=== PATIENT | female | born 1965 | race Caucasian/White ===

== ENCOUNTER → 2017-07-23 10:06 | Outpatient (CLI) | payer BC, SELFPAY ==
[2017-07-23 10:31] LABS: Absolute Lymphocyte Count 1.87 X10^3/ul (0.83-4.51); Basophil# 0.02 X10^3/uL; Basophil% 0.3 % (0-1); Eosinophils% 1.6 % (0-5); Hematocrit 40.5 % (37-47); Hemoglobin 12.6 g/dl (12.0-15.0); Lymphocyte # 1.87 X10^3/ul (4.0); Lymphocyte % 29.1 % (19-41); Mean Corp Hgb Conc 31.1 g/gl (32-36); Mean Corpuscular Hgb 26.6 pg (27.0-32.0); Mean Corpuscular Volume 85.4 fL (81-99); Mean Platelet Vol. 10.9 fl (6.2-12.0); Monocyte% 6.2 % (0-10); Neutrophil # 4.03 X10^3/uL (2.7-7.7); Neutrophil % 62.6 % (47-70); Platelet Count 246 K/mm3 (150-450); Red Blood Count 4.74 M/mm3 (4.2-5.4); White Blood Count 6.4 K/mm3 (4.4-11.0)
[2017-07-23 10:33] LABS: POSITIVE COUNT NO; POSITIVE DIFFERENTIAL NO; POSITIVE MORPHOLOGY NO
== END ==
PROVIDERS: Visit Provider Obstetrics & Gynecology
DX: N93.9 Abnormal uterine and vaginal bleeding, unspecified (principal)
CPT/HCPCS: 36415; 85025

== ENCOUNTER 2017-10-07 08:37 | Day surgery (SDC) | payer BC, SELFPAY ==
[2017-10-01 10:56] LABS: Absolute Lymphocyte Count 1.61 X10^3/ul (0.83-4.51); Absolute Neutrophil Count 3.8 X10^3/uL (2.0-7.7); Basophil# 0.01 X10^3/uL; Basophil% 0.2 % (0-1); Eosinophil# 0.12 X10^3/uL; Hematocrit 38.6 % (37-47); Hemoglobin 11.9 g/dl (12.0-15.0); Lymphocyte # 1.61 X10^3/ul (4.0); Lymphocyte % 27.1 % (19-41); Mean Corp Hgb Conc 30.8 g/gl (32-36); Mean Corpuscular Hgb 25.9 pg (27.0-32.0); Mean Corpuscular Volume 84.1 fL (81-99); Mean Platelet Vol. 10.7 fl (6.2-12.0); Monocyte# 0.39 X10^3/uL; Monocyte% 6.6 % (0-10); Neutrophil # 3.81 X10^3/uL (2.7-7.7); Neutrophil % 63.9 % (47-70); Platelet Count 256 K/mm3 (150-450); RBC Distribution Width CV 16.1 % (11.6-14.6); Red Blood Count 4.59 M/mm3 (4.2-5.4)
[2017-10-01 11:01] LABS: POSITIVE COUNT NO; POSITIVE DIFFERENTIAL NO; POSITIVE MORPHOLOGY NO
[2017-10-01 11:25] LABS: Internal QC Validated? YES +Cl - CLEAR BKGD
[2017-10-01 11:26] LABS: Pregnancy, Urine Negative Negative
[2017-10-07] VITALS (11 sets, daily range): BP systolic 101–159; BP diastolic 61–94; PULSE 46–78; RESP 16–18; TEMP 36.2–37.6; O2SAT 93–98; BMI 32.8
--- NOTE | 2017-10-07 | HYST_PTH ---
PATIENT: SANTO AVILES LOC: [facility] [place] U#:[id number] AGE/SX: 52/F ROOM: RE10/07/[address]: Dr. Coni White MD : [id number] BED: DIS: 10/08/2017 SPEC #: [id number] RECD: 10/07/17 14:32 STATUS: SIENNA DE DIOS #: [id number] SHELBIE: 10/07/17 00:[address]: Coni White DEPT: SURGICAL PATHOLOGY RECD BY: Scot Barajas ENTERED: 10/07/17 14:32 SP TYPE: HYSTERECT OTHR DR: Out of Town Doctor Tissues: Uterus, NOS Procedures: Surgery Specimen Level V HEADER OPERATION: Hysterectomy, lap assisted vaginal, salpingectomy, cysto PRE-OP DIAGNOSIS: Abnormal uterine bleeding TISSUE SUBMITTED: Uterus, bilateral fallopian tubes MICROSCOPIC DIAGNOSIS Uterus and bilateral fallopian tubes, vaginal hysterectomy and bilateral salpingectomy: Cervix ? chronic cystic cervicitis and squamous metaplasia. - Benign endocervical polyps. Endometrium ? secretory endometrium. - Benign endometrial polyp. Myometrium ? intramural leiomyomas (largest measuring 3.5 cm in greatest dimension). - Diffuse adenomyosis. Bilateral fallopian tubes - no pathologic diagnosis. SJ:markus 10/08/17 MICROSCOPIC DESCRIPTION Slides are reviewed. GROSS DESCRIPTION Received in fixative is one container labeled with the patient's name and designated uterus, bilateral fallopian tubes. The specimen consists of a hysterectomy specimen consisting of uterus with cervix, attached right fallopian tube and detached left fallopian tube and a detached piece of uterine wall. The uterus with cervix and detached piece of uterine wall weighs in aggregate 325 gm. The uterus with cervix measures 14 x 11 x 7 cm. The uterus is previously partially opened. The detached piece of uterine wall measures 4 x 4 x 2 cm. The serosal surface is dsouza, glistening. The ectocervical mucosa is unremarkable. The external os is oval and patulous in contour. The endocervical canal measures 3.5 cm in length and the endocervical mucosa shows two polyps measuring 1.8 x 1 x 0.4 cm and 1 x 0.3 x 0.2 cm. Sections of the cervix reveal multiple cysts filled with mucoid material. The cervical wall underneath the polyps is not indurated. The triangular endometrial cavity measures 6 cm in length and 3 cm in width. A congested polyp is noted in the posterior uterine wall measuring 2 x 1.5 x 0.5 cm. The myometrial wall underneath the polyp is not indurated. The rest of the endometrium is dsouza, glistening and measures up to 0.1 cm in thickness. Sections of the uterine wall reveal multiple nodular masses. The largest mass measures 3.5 cm in greatest dimension. Sections of the rest of the uterine wall reveal diffuse thickening with ill-defined nodule suspicious for adenomyosis and measures up to 4 cm in thickness. Sections of these masses reveal dsouza whorled cut surfaces without areas of hemorrhage, necrosis or cystic degeneration. Sections of detached uterine wall piece also show a nodular mass. The uninvolved uterine wall measures up to 4 cm in thickness. The right fallopian tube measures 6.5 cm in length and up to 1 cm in diameter. The fimbrial end is identified. The left fallopian tube measures 6 cm in length and 0.8 cm in diameter. The fimbrial end is identified. Sections of both fallopian tubes reveal unremarkable cut surfaces. Drafter Detail sections are submitted in 12 cassettes as follows: 1 - anterior cervix, 2 - posterior cervix, (1 & 2 ? sections also contain endocervical polyp), 3 & 4 - anterior uterine wall, 5 & 6 - posterior uterine wall, sections of the uterine wall also contain the ill-defined nodular masses, 7 ? endometrial polyp with underlying uterine wall (All the polyps are submitted in entirety), 8 & 9 ? smaller and intermediate size nodular mass, 10 ? largest nodular mass, 11 ? right fallopian tube, 12 ? left fallopian tube. / EILEEN:markus 10/07/17 TC:1 CPT: 12092
--- NOTE | 2017-10-07 07:39 | PCM.HP.STD ---
Problem List (1) Abnormal uterine bleeding Status: Chronic (2) Enlarged uterus Status: Acute (3) Uterine fibroid Status: Chronic Qualifiers: History of Present Illness Date of Admission: 10/07/17 The patient is a 52 year old F presents with pelvic pain, dyspareunia, and AUB. she failed management with lysteda. she has a 15 week size uterus with multiple fibroids and a normal EMB. Past Medical History Past Medical History (Chronic Problems): Chronic Problems (Last Updated 07/23/17 @ 09:26 by Juliette Gardiner) Abnormal uterine bleeding (Chronic) Uterine fibroid (Chronic) Medical History: Medical History (Last Updated 07/23/17 @ 09:26 by Juliette Gardiner) History of malignant melanoma Z85.820 Allergies No Known Allergies Allergy (Unverified 07/23/17 09:24) Home Medications: Ambulatory Orders Medication Instructions Recorded ferrous sulfate 325 mg (65 mg 325 mg PO TID tab 07/23/17 iron) tablet multivitamin,[id number]-cdga-yzchipxo 1 tab PO QDAY 07/23/17 tablet tranexamic acid 650 mg tablet PO 07/23/17 Surgical History: Surgical History (Last Updated 07/23/17 @ 09:26 by Juliette Gardiner) History of tonsillectomy Z90.89 surgery for melanoma 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 CRAB PICKER history, - - 2 previous Smoking Status: Never smoker Review of Systems Constitutional: Denies: Fever, Malaise Eyes: Denies: Blurred vision, Vision Change HEENT: Denies: Head Aches, Visual Changes Cardiovascular: Denies: Chest Pain, Palpitations Respiratory: Denies: Cough, Shortness of Breath, Wheezing Gastrointestinal: Denies: Abdominal Pain, Diarrhea, Nausea, Vomiting Genitourinary: Denies: Dysuria, Hematuria Musculoskeletal: Denies: Joint Pain, Muscle pain Skin: Denies: Lesions, Rash Neurological: Denies: Blurred vision, Focal weakness, Headaches Psychiatric: Denies: Anxiety, Depression Endocrine: Denies: Heat/ Cold Intolerance Hematologic/ Lymphatic: Denies: Easy Bruising, Easy Bleeding VTE Information - Inpt Only VTE Present on Admission: No - Physical Exam General: Alert, Oriented x3, Cooperative HEENT: Atraumatic, Normocephalic Neck: Supple, No JVD Lungs: Clear to auscultation, Normal air movement Cardiovascular: Regular rate, No murmurs Abdomen: Bowel Sounds Present, Soft, Non Tender Extremities: No edema Skin: No rashes, No breakdown Musculoskeletal: No Tenderness to Palpation of Joints or Extremities Neurological: Cranial nerves II-XII grossly intact Psych/Mental Status: Normal Affect, Appropriate Assessment/Plan All Active Problems (Last Updated 07/23/17 @ 09:26 by Juliette Gardiner) Enlarged uterus (Acute) 52 yo presents with AUB uterine fibroids and pelvic pain recommend lavh bs cystoscopy discussed surgical risks including risks of anesthesia, infection, bleeding, injury to bowel, bladder or blood vessels, and patient wishes to proceed with surgery.
--- NOTE | 2017-10-07 07:42 | HP.PCM_ITS ---
Problem List (1) Abnormal uterine bleeding Status: Chronic (2) Enlarged uterus Status: Acute (3) Uterine fibroid Status: Chronic Qualifiers: History of Present Illness Date of Admission: 10/07/17 The patient is a 52 year old F presents with pelvic pain, dyspareunia, and AUB. she failed management with lysteda. she has a 15 week size uterus with multiple fibroids and a normal EMB. Past Medical History Past Medical History (Chronic Problems): Chronic Problems (Last Updated 07/23/17 @ 09:26 by Juliette Gardiner) Abnormal uterine bleeding (Chronic) Uterine fibroid (Chronic) Medical History: Medical History (Last Updated 07/23/17 @ 09:26 by Juliette Gardiner) History of malignant melanoma Z85.820 Allergies No Known Allergies Allergy (Unverified 07/23/17 09:24) Home Medications: Ambulatory Orders Medication Instructions Recorded ferrous sulfate 325 mg (65 mg 325 mg PO TID tab 07/23/17 iron) tablet multivitamin,[id number]-pnku-xfhtchnj 1 tab PO QDAY 07/23/17 tablet tranexamic acid 650 mg tablet PO 07/23/17 Surgical History: Surgical History (Last Updated 07/23/17 @ 09:26 by Juliette Gardiner) History of tonsillectomy Z90.89 surgery for melanoma 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, - - 2 previous Smoking Status: Never smoker Review of Systems Constitutional: Denies: Fever, Malaise Eyes: Denies: Blurred vision, Vision Change HEENT: Denies: Head Aches, Visual Changes Cardiovascular: Denies: Chest Pain, Palpitations Respiratory: Denies: Cough, Shortness of Breath, Wheezing Gastrointestinal: Denies: Abdominal Pain, Diarrhea, Nausea, Vomiting Genitourinary: Denies: Dysuria, Hematuria Musculoskeletal: Denies: Joint Pain, Muscle pain Skin: Denies: Lesions, Rash Neurological: Denies: Blurred vision, Focal weakness, Headaches Psychiatric: Denies: Anxiety, Depression Endocrine: Denies: Heat/ Cold Intolerance Hematologic/ Lymphatic: Denies: Easy Bruising, Easy Bleeding VTE Information - Inpt Only VTE Present on Admission: No - Physical Exam General: Alert, Oriented x3, Cooperative HEENT: Atraumatic, Normocephalic Neck: Supple, No JVD Lungs: Clear to auscultation, Normal air movement Cardiovascular: Regular rate, No murmurs Abdomen: Bowel Sounds Present, Soft, Non Tender Extremities: No edema Skin: No rashes, No breakdown Musculoskeletal: No Tenderness to Palpation of Joints or Extremities Neurological: Cranial nerves II-XII grossly intact Psych/Mental Status: Normal Affect, Appropriate Assessment/Plan All Active Problems (Last Updated 07/23/17 @ 09:26 by Juliette Gardiner) Enlarged uterus (Acute) 52 yo presents with AUB uterine fibroids and pelvic pain recommend lavh bs cystoscopy discussed surgical risks including risks of anesthesia, infection, bleeding, injury to bowel, bladder or blood vessels, and patient wishes to proceed with surgery.
--- NOTE | 2017-10-07 08:44 | EKG12_ITS ---
Test Reason : PRE OP Blood Pressure : / mmHG Vent. Rate : 070 BPM Atrial Rate : 070 BPM P-R Int : 154 ms QRS Dur : 114 ms QT Int : 426 ms P-R-T Axes : 023 035 035 degrees QTc Int : 460 ms Normal sinus rhythm Normal ECG Confirmed by ANGELINE CHURCH ([id number]), image editor NAREN CARL ([id number]) on 10/11/2017 2:55:09 PM Referred By: Coni White Confirmed By:ANGELINE CHURCH
[2017-10-07 08:56] LABS: Internal QC Validated? YES +Cl - CLEAR BKGD; Pregnancy, Urine Negative Negative
[2017-10-07] MEDS: Phenazopyridine 95 MG Tablet 190 MG PO (09:10)
[2017-10-07] MEDS: Vasopressin 20 UNITS/ML Vial (10:45)
[2017-10-07] MEDS: Bupivacaine 0.25% 30 ML Vial (11:25)
--- NOTE | 2017-10-07 11:27 | PCM.OPRPT ---
Problem List (1) Abnormal uterine bleeding Status: Chronic (2) Enlarged uterus Status: Acute (3) Uterine fibroid Status: Chronic Qualifiers: Report of Operation Date of Procedure: 10/07/17 Pre-Operative Diagnosis: uterine fibroids AUB Post-Operative Diagnosis: same Surgery/Procedure Performed:: Laparoscopic-assisted vaginal hysterectomy bilateral salpingectomy cystoscopy Description of Surgical Findings:: Enlarged multiple fibroid uterus approximately 14 weeks size with severe pelvic congestion. Normal bladder lining increased congestion wildlife control operator: Sirena Iverson Type of Anesthesia:: General Special Medications: none Specimen's removed: uterus tubes Drains: urena Estimated Blood Loss (mL): 100 Fluids Replaced: crystalloid Description of Procedure: Patient received preoperative antibiotics and SCDs were on preoperatively. Patient was taken back to the operating room and placed in the dorsal lithotomy position. General anesthesia was induced and patient was prepped and draped in normal sterile fashion. Uterine manipulator was placed inside the uterus and Urena catheter placed in the bladder. The umbilicus was grasped with towel clamps and an intraumbilical incision was made after injecting with quarter percent Marcaine and a Veress needle entered into the abdomen confirmed to be intra-abdominal with a low opening pressure. Abdomen was insufflated with CO2 gas and the Veress needle removed and the 5 mm trocar was placed under direct visualization without complication. Right and left lower quadrants were transilluminated and injected with quarter percent Marcaine and 5 mm ports placed under direct visualization. Pelvis was well visualized see operative findings for additional information. Bilateral fallopian tubes were identified and transected with the LigaSure device across the mesosalpinx to the level of the utero-ovarian ligament which was also transected with the LigaSure device. The broad ligament was opened up by transecting the round ligament bilaterally and skeletonizing the uterine vessels bilaterally and creating a bladder flap using the LigaSure device. The uterine arteries were transected bilaterally with good visualization of the bladder and the ureters were seen to be inferior lateral to the operative area. Attention was then paid to the vaginal portion of the procedure and the cervix was grasped with Jose Ramon clamps and circumferentially injected with dilute vasopressin. A circumferential incision was made and the vaginal mucosa was mobilized off posteriorly and the cul-de-sac entered into sharply and a longneck speculum placed. The anterior cul-de-sac was then identified and entered into sharply. The uterosacral ligaments were clamped cut and suture ligated with 0 Monocryl bilaterally followed by the cardinal ligaments which were clamped cut and suture ligated bilaterally with 0 Monocryl. The uterus serially descended and was removed without difficulty with minimal morcellation. Pelvic sidewall pedicles were checked and noted to have excellent hemostasis. The vaginal mucosa was reapproximated incorporating the posterior peritoneum. This was reapproximated using 0 Vicryl [id number] sutures. Excellent hemostasis was noted. The cystoscopy was then performed and bilateral ureteral strong spray was noted and the bladder was noted to have no abnormality or lesions seen. Urena catheter was replaced and then attention paid to the abdominal portion of the procedure again. The pelvis and cul-de-sac was well visualized and no significant active bleeding noted but some raw areas were seen on the peritoneum and therefore Charito was applied. Pressure was taken down and the areas visualized and noted of excellent hemostasis. All ports were removed under direct visualization without complication and the abdomen was desufflated of air. The instruments removed from the abdomen and the vagina vaginal sweep was negative. Port sites on the abdomen were closed with 4-0 Monocryl interrupted sutures and Steri's and windows were applied. She was awoken and taken recovery in stable condition. Grafts/Implants Used: none - Complications none
[2017-10-07] MEDS: Dextrose 5%-Lactated Ringers 1,000 ML 125 ML IV ×2 (13:55→21:38)
[2017-10-07] MEDS: Ketorolac 30 MG/ML Syringe IV ×2 (15:46→21:26)
[2017-10-07] MEDS: Acetaminophen 500 MG Tablet 1000 MG PO ×2 (15:46→21:26)
[2017-10-07] MEDS: Ferrous Sulfate 325 MG Tablet PO (17:25)
[2017-10-07] MEDS: Enoxaparin 40 MG/0.4 ML Syringe SC (21:26)
[2017-10-08 03:56] VITALS: BP 118/70; PULSE 60; RESP 18; TEMP 36.6; O2SAT 95
[2017-10-08] MEDS: Ketorolac 30 MG/ML Syringe IV ×2 (03:58→09:29)
[2017-10-08] MEDS: Acetaminophen 500 MG Tablet 1000 MG PO (05:45)
[2017-10-08 06:52] LABS: Hematocrit 33.9 % (37-47); Hemoglobin 10.5 g/dl (12.0-15.0); Mean Corpuscular Hgb 25.7 pg (27.0-32.0); Mean Corpuscular Volume 83.1 fL (81-99); Mean Platelet Vol. 11.5 fl (6.2-12.0); Platelet Count 244 K/mm3 (150-450); RBC Distribution Width CV 16.1 % (11.6-14.6); Red Blood Count 4.08 M/mm3 (4.2-5.4); White Blood Count 13.2 K/mm3 (4.4-11.0)
[2017-10-08 06:56] LABS: Scan Indicated on CBC? Y/N NO
[2017-10-08 08:22] VITALS: O2SAT 95
[2017-10-08] MEDS: Multivitamins,Ther W-Minerals Tablet 1 TABLET PO (09:28)
[2017-10-08] MEDS: Ferrous Sulfate 325 MG Tablet PO ×2 (09:28→12:13)
[2017-10-08] MEDS: Enoxaparin 40 MG/0.4 ML Syringe SC (09:28)
--- NOTE | 2017-10-08 09:34 | PCM.DC.VHY ---
Discharge Diet: No Restrictions Discharge Activity: Return to Normal Activity, May Not Drive, May Shower May resume sexual activity in: 6-8 weeks Call your doctor if your incision/area has: Continuous Slow Oozing, Sudden Increased Bleeding, Increased Pain/ Swelling, Increased Redness, Foul Smelling Discharge Call your doctor if you observe: Fever of 101 or Higher, Inability to urinate, Inability to have a bowel movement, Using more than one pad per hour Allergies/Adverse Reactions: Allergies No Known Allergies Allergy (Unverified 07/23/17 09:24) Medications to take at Discharge ferrous sulfate 325 mg (65 mg iron) tablet 325 mg PO TID tab 07/23/17 multivitamin,dk-burv-ciswuabi tablet 1 tab PO QDAY 07/23/17 tranexamic acid 650 mg tablet PO 07/23/17 Naproxen [Naprosyn] 250 - 500 mg PO Q8H PRN PRN #30 tab 10/08/17 Oxycodone HCl/Acetaminophen [Percocet 5-325] 1 - 2 tablet PO Q4H PRN PRN 7 Days #15 tablet 10/08/17 The following prescriptions were given: Oxycodone HCl/Acetaminophen [Percocet 5-325] 1 - 2 tablet PO Q4H PRN PRN 7 Days #15 tablet PRN Reason: Pain Naproxen [Naprosyn] 250 - 500 mg PO Q8H PRN PRN #30 tab PRN Reason: MILD PAIN Primary Care Physician: Dixie Molina,Out of [Primary Care Provider] - Please Follow Up With: Coni White MD - [phone]
--- NOTE | 2017-10-08 09:34 | PCM.PN.OB ---
Subjective: doing well no complaints - Physical Exam Vital Signs Temp Pulse Resp BP Pulse Ox 97.8 F 60 18 118/70 95 10/08/17 03:56 10/08/17 03:56 10/08/17 03:56 10/08/17 03:56 10/08/17 08:22 Oxygen Flow Rate (L/min) 2 Oxygen Delivery Method Room Air Weight: 235 lb 7.259 oz Body Mass Index (BMI) 32.8 Intake and Output for Last 24 Hours 10/06/17 10/07/17 10/08/17 23:59 23:59 23:59 Intake Total 2388 / 2388 2712 / 2712 Output Total 440 / 440 1400 / 1400 Balance 1948 / 1948 1312 / 1312 Laboratory Tests Past 24 Hrs 10/08/17 06:09 WBC 13.2 H RBC 4.08 L Hgb 10.5 L Hct 33.9 L MCV 83.1 MCH 25.7 L MCHC 31.0 L RDW 16.1 H RDW Differential 49.0 H Plt Count 244 MPV 11.5 Medical Necessity - Tobacco Use Smoking Status: Never smoker Assessment/Plan All Active Problems (Last Updated 07/23/17 @ 09:26 by Juliette Gardiner) Enlarged uterus (Acute) s/p lavh doing well routine care tx home
[2017-10-08 09:55] VITALS: BP 114/60; PULSE 48; RESP 16; TEMP 36.9; O2SAT 95
[2017-10-08 13:00] VITALS: BP 123/72; PULSE 59; RESP 16; TEMP 36.4; O2SAT 97
== END 2017-10-08 13:30 | disposition home or self-care (01) ==
LOC: SDC 08:38 → AC 08:38 → MS3 10-08 06:40
PROVIDERS: Visit Provider Obstetrics & Gynecology
PROC: 0UT9FZZ Resection of Uterus, Via Natural or Artificial Opening With Percutaneous Endoscopic Assistance (ICD-10-PCS; CPT 58554; principal; 2017-10-07 09:45)
DX: D25.1 Intramural leiomyoma of uterus (principal); N80.0 Endometriosis of uterus; N72 Inflammatory disease of cervix uteri; N84.0 Polyp of corpus uteri; K21.9 Gastro-esophageal reflux disease without esophagitis; D64.9 Anemia, unspecified; Z85.820 Personal history of malignant melanoma of skin
CPT/HCPCS: 58554; 36415; 81025; 85025; 85027; 86850; 86900; 88307; 93005; J7120; J2405